=== PATIENT | female | born 1940 | race Caucasian/White ===

== ENCOUNTER → 2017-12-05 | Outpatient (CLI) | payer OTHER ==
[~2017-12-05] MED LIST: ASPI-555 PO; ENAL20TA PO; GLIM4TAB3 PO; HYDR25TA PO; METF-446 PO; NIAC-8 PO; PRAV40TA3 PO; [UNRECOGNIZED DRUG - OTHER] OU
== END | disposition home or self-care (01) ==
LOC: SHCH 10:43 → EDSTATUS 11:00
PROVIDERS: ATTEND Internal Medicine Cardiovascular Disease
DX: I10 Essential (primary) hypertension (principal)
CPT/HCPCS: 93306

== ENCOUNTER 2017-12-21 10:00 | Inpatient (IN) | payer OTHER ==
[~2017-12-21] VITALS: Ht 195.6 cm; Wt 86.6 kg
[2017-12-21 09:38] LABS: BASOPHILS % (AUTO) 1.1 % (0.0-5.0); EOSINOPHILS % (AUTO) 1.7 % (0.0-8.0); HEMATOCRIT 37.2 % (36-48); LYMPHOCYTES % (AUTO) 26.1 % (21.0-51.0); MEAN CORPUSCULAR HEMOGLOBIN 31.9 pg (27.0-33.0); MEAN CORPUSCULAR HGB CONC 34.4 g/dL (32.0-36.0); MEAN CORPUSCULAR VOLUME 92.6 fL (79-99); MONOCYTES % (AUTO) 6.7 % (3.0-13.0); NEUTROPHILS % (AUTO) 64.4 % (40.0-77.0); PLATELET COUNT (AUTO) 130 K/uL (130-400); RED BLOOD CELL COUNT(AUTO) 4.02 MIL/uL (4.00-5.50); RED CELL DISTRIBUTION WIDTH 13.8 % (11.0-15.5); WHITE BLOOD COUNT (AUTO) 8.3 K/uL (4.8-10.8)
[2017-12-21 09:41] VITALS: BP 109/71
[2017-12-21 09:46] LABS: CREATININE 1.1 mg/dL (0.5-1.5); POTASSIUM 4.2 mmol/L (3.5-5.1)
[~2017-12-21 10:00] MED LIST changes: -NIAC-8 PO
[2017-12-25] VITALS (21 sets, daily range): BP systolic 108–148; BP diastolic 52–74
[2017-12-25] MEDS: CEFAZOLIN SODIUM 1 GM VIAL IVP SCH ×4 (06:00→20:37)
[2017-12-25] MEDS ORDERED: SODIUM CHLORIDE 0.9% 1000ML 1,000 ML IV ONE (06:24)
[2017-12-25] MEDS ORDERED: LIDOCAINE PF 2% 5ML ABBOJECT ONE (06:43)
[2017-12-25] MEDS ORDERED: ONDANSETRON HCL 4 MG/2 ML VIAL ONE (06:44)
[2017-12-25] MEDS ORDERED: MIDAZOLAM HCL 1 MG/ML 2ML VIAL ONE (06:44)
[2017-12-25] MEDS ORDERED: PROPOFOL 10 MG/ML 20ML VIAL IV ONE (06:44)
[2017-12-25] MEDS ORDERED: DEXAMETHASONE SOD PHOSPHATE 10MG/ML 1ML VIAL ONE (06:44)
[2017-12-25] MEDS ORDERED: NEOSTIGMINE 5MG/5ML SYR IV ONE (06:44)
[2017-12-25] MEDS ORDERED: ROCURONIUM 10MG/1ML SYR 10 MG/ML ML ONE ×2 (06:45→09:28)
[2017-12-25] MEDS ORDERED: GLYCOPYRROLATE 1 MG/5 ML SYRINGE ONE (06:45)
[2017-12-25] MEDS ORDERED: FENTANYL CITRATE PF 50 MCG/1 ML 2ML VIAL ONE ×2 (06:45→08:18)
[2017-12-25] MEDS ORDERED: BACITRACIN 28.4 GM OINT TP ONE (06:46)
[2017-12-25] MEDS ORDERED: OXYMETAZOLINE HCL SPRAY 15 ML BOTTLE ONE ×2 (06:46→07:08)
[2017-12-25] MEDS ORDERED: LIDOCAINE 1%-EPI 1:100,000 20 ML VIAL IJ ONE (06:46)
[2017-12-25] MEDS ORDERED: BACITRACIN 50,000 UNIT VIAL ONE (06:47)
[2017-12-25] MEDS ORDERED: THROMBIN-JMI 20000 UNIT KIT TP ONE (06:47)
[2017-12-25] MEDS ORDERED: LATA7.5D OP (06:53)
[2017-12-25] MEDS ORDERED: EPINEPHRINE 1 MG/ML 30ML VIAL IJ ONE (07:08)
[2017-12-25] MEDS ORDERED: EPHEDRINE SULFATE 50 MG/ML AMPULE ONE (08:47)
[2017-12-25] MEDS ORDERED: LIDOCAINE HCL 4% LTA SOL 4 ML VIAL ONE ×2 (08:51)
[2017-12-25] MEDS ORDERED: SODIUM CHLORIDE 0.9% 500ML 500 ML IV ONE (10:47)
[2017-12-25 10:52] LABS: ABG BASE EXCESS -8.3 mmol/L (-2.0-3.0); ABG HCO3 18.7 mmol/L (21.0-28.0); ABG OXYGEN SATURATION 98.6 % (95.0-99.0); ABG PCO2 44 mmHg (32-45)
[2017-12-25] MEDS ORDERED: LACTATED RINGERS 1000ML 1,000 ML IV ONE (11:11)
[2017-12-25] MEDS ORDERED: MORPHINE SULFATE 2 MG/ML 1ML SYG IVP PRN (11:30)
[2017-12-25] MEDS: LACTATED RINGERS 1000ML 1,000 ML IV SCH ×2 (11:30→23:25)
[2017-12-25] MEDS ORDERED: DEXAMETHASONE 4 MG TAB PO SCH (12:00)
[2017-12-25] MEDS: INSULIN HUMULIN R 100 UNIT/ML 3ML SQ SCH ×2 (12:25→16:44)
[2017-12-25] MEDS ORDERED: DEXAMETHASONE SOD PHOSPHATE 4 MG/ML 1ML VIAL ONE (13:11)
[2017-12-25] MEDS ORDERED: DEXAMETHASONE SOD PHOSPHATE 4 MG/ML 1ML VIAL IVP ONE (14:15)
[2017-12-25] MEDS: DEXAMETHASONE SOD PHOSPHATE 4 MG/ML 1ML VIAL IVP SCH ×2 (20:37→23:19)
[2017-12-25] MEDS: ENALAPRIL MALEATE 10 MG TABLET PO SCH (20:38)
[2017-12-25] MEDS ORDERED: LATANOPROST OP SCH (21:00)
[2017-12-25] MEDS ORDERED: Pravastatin Sodium 40 MG PO SCH (21:00)
[2017-12-25] MEDS ORDERED: METFORMIN HCL 500 MG TABLET PO SCH (21:00)
[2017-12-25] MEDS ORDERED: ASPIRIN 81MG TAB.CHEW PO SCH (21:00)
[2017-12-26] VITALS (9 sets, daily range): BP systolic 96–112; BP diastolic 52–62
[2017-12-26] MEDS: INSULIN HUMULIN R 100 UNIT/ML 3ML SQ SCH ×2 (00:39→06:00)
[2017-12-26] MEDS: CEFAZOLIN SODIUM 1 GM VIAL IVP SCH ×2 (02:06→09:22)
[2017-12-26] MEDS: DEXAMETHASONE SOD PHOSPHATE 4 MG/ML 1ML VIAL IVP SCH (06:08)
[2017-12-26] MEDS ORDERED: GLIMEPIRIDE 2 MG TABLET PO SCH (09:00)
[2017-12-26] MEDS ORDERED: HYDROCHLOROTHIAZIDE 25 MG TABLET PO SCH (09:00)
[2017-12-26] MEDS: ENALAPRIL MALEATE 10 MG TABLET PO SCH (09:22)
[2017-12-26] MEDS ORDERED: CEPH250C2 PO (13:24)
== END 2017-12-26 15:00 | disposition home or self-care (01) | DRG 615 ==
LOC: EDSTATUS 10:00 → DAHIP 12-25 05:39 → 2CH 12-25 10:43
PROVIDERS: ADMIT Neurological Surgery; ATTEND Neurological Surgery
PROC: 0GB04ZZ Excision of Pituitary Gland, Percutaneous Endoscopic Approach (ICD-10-PCS; principal; 2017-12-25 08:18)
PROC: BW191ZZ Fluoroscopy of Head and Neck using Low Osmolar Contrast (ICD-10-PCS; 2017-12-25 08:18)
DX: D35.2 Benign neoplasm of pituitary gland (principal); E11.9 Type 2 diabetes mellitus without complications; E78.5 Hyperlipidemia, unspecified; H40.9 Unspecified glaucoma; I11.9 Hypertensive heart disease without heart failure; M54.10 Radiculopathy, site unspecified; G47.33 Obstructive sleep apnea (adult) (pediatric); E66.9 Obesity, unspecified; Z68.22 Body mass index [BMI] 22.0-22.9, adult; Z90.710 Acquired absence of both cervix and uterus
CPT/HCPCS: 36415; 76000; 80048; 82435; 82803; 82947; 82948; 83605; 84132; 84295; 85018; 85025; 88307; A4218; A4344; A4357; C1713; J0171; J0690; J1100; J2001; J2250; J2405; J2704; J2710; J3010; J3490; J7030; J7040; J7120; J8540

== ENCOUNTER → 2018-02-18 | Outpatient (CLI) | payer OTHER ==
[~2018-02-18] MED LIST changes: +CEPH250C2 PO; +GADODIAMIDE 10 MMOL/20 ML ML IV ONE; +LATA7.5D OP; -[UNRECOGNIZED DRUG - OTHER] OU
== END | disposition home or self-care (01) ==
LOC: RAH 07:43
PROVIDERS: ATTEND Neurological Surgery
DX: D35.2 Benign neoplasm of pituitary gland (principal); G31.9 Degenerative disease of nervous system, unspecified
CPT/HCPCS: 70553; A9579